=== PATIENT | male | born 1985 | race Caucasian/White ===

== ENCOUNTER 2020-07-18 12:02 | Emergency (ER) | payer OTHER | END 2020-07-18 15:00 | disposition left against medical advice (07) | LOC: ER1 12:02 | DX: Z53.21 Procedure and treatment not carried out due to patient leaving prior to being seen by health care provider (principal) ==

== ENCOUNTER 2020-10-22 11:23 | Emergency (ER) | payer OTHER | END 2020-10-22 13:55 | disposition left against medical advice (07) | LOC: ER1 11:23 | DX: K64.5 Perianal venous thrombosis (principal); Z80.42 Family history of malignant neoplasm of prostate | CPT/HCPCS: 99283 ==